=== PATIENT | male | born 1990 | race Caucasian/White ===

== ENCOUNTER → 2016-10-16 | Outpatient (CLI) | payer BC ==
--- NOTE | ~2016-10-16 | CR63 ---
[facility] A Service of [facility] RADIOLOGY TEXT RESULTS PATIENT: DWIGHT BANUELOS LOCATION: [facility] : [birth year] UNIT #: [id number] AGE: [address]: Radha Cohen MD SEX: M ORDER DR: [id number] [facility] [address] [place], [place] [address] [id number] O MR#: [id number] Acc #: [id number] NAME: DWIGHT BANUELOS : 1990 SEX: M STUDY DATE/TIME: 10/16/2016 10:04 UNIT: [facility] ROOM: STUDY DESCRIPTION: CR Chest 2 View Attending Physician: Radha Cohen M.D. Referring Physician: Radha Cohen M.D. Ordering Physician: Radha Cohen M.D. Primary Care Physician: Radha Cohen M.D. MEDICAL IMAGING REPORT This report is preliminary unless electronic signature is present EXAM PA and lateral chest INDICATIONS A 26-year-old male with cough, fever and chills for 1 week and right-sided chest pain. Concern for pneumonia. Compared with 10/13/2016 FINDINGS There is stable linear scar or atelectasis in the right base. No new infiltrates. Heart size is normal. Visualized osseous structures are unremarkable. IMPRESSION Stable linear scarring or atelectasis in the right base. No new infiltrates. Dictated by... Sandeep Weiner M.D. THIS IS AN ELECTRONICALLY VERIFIED REPORT Sandeep Weiner M.D. at 10/17/2016 8:38 AM SHAREE/naa TD: 10/16/2016 15:53 JOB #: [id number] MEDICAL IMAGING REPORT Page 1 of 1 COPY
== END | disposition home or self-care (01) ==
LOC: CRAD 09:39
DX: J18.9 Pneumonia, unspecified organism (principal); R07.9 Chest pain, unspecified
CPT/HCPCS: 71020